=== PATIENT | male | born 1950 | race Caucasian/White ===

== ENCOUNTER → 2021-08-30 12:34 | Outpatient (CLI) | payer MEDICARE, SELFPAY ==
[2021-08-30 13:02] LABS: Basophils # 0.1 K/mm3 (0-0.2); Basophils % 0.9 % (0.1-2.0); Eosinophils # 0.1 K/mm3 (0.0-0.4); Eosinophils % 0.7 % (0.1-12.0); Hematocrit 44.1 % (42.0-52.0); Hemoglobin 14.2 g/dL (14.1-18.0); Lymphocytes # 1.2 K/mm3 (0.7-4.5); Lymphocytes % 8.5 % (10-50); Mean Corpuscular HGB Conc 32.2 g/dL (31.8-35.4); Mean Corpuscular Hemoglobin 30.6 pg (27.0-31.2); Mean Platelet Volume 8.9 fl (7.4-10.4); Monocytes # 0.8 K/mm3 (0.1-1.0); Monocytes % 5.7 % (1.7-9.3); Neutrophils # 11.5 K/mm3 (1.8-7.8); Neutrophils % 84.1 % (37.0-80.0); Platelet Count 333 K/mm3 (142-424); Red Blood Count 4.64 M/mm3 (4.60-6.20); Red Cell Distribution Width 14.4 % (11.5-17.5); White Blood Count 13.7 K/mm3 (4.8-10.8)
[2021-08-30 13:05] LABS: Chloride 101 mmol/L (98-107); Potassium 3.7 mmoL/L (3.5-5.1); Sodium 135 mmol/L (136-145)
[2021-08-30 13:07] LABS: Amylase 71 U/L (30-110); Blood Urea Nitrogen 29 mg/dl (9-20); Estimated Glomerular Filt Rate 40 ml/min (>60); GFR (African American) 48 ML/MIN (>60)
[2021-08-30 13:08] LABS: Alanine Aminotransferase 214 U/L (12-78); Albumin Level 3.6 g/dl (3.5-5.0); Albumin/Globulin Ratio 1.1 (1.1-1.8); Alkaline Phosphatase 1313 U/L (38-126); Anion Gap 11.7 mEq/L (5-15); Aspartate Amino Transferase 181 U/L (17-59); Bilirubin,Total 4.7 mg/dl (0.2-1.3); Calcium 8.4 mg/dl (8.4-10.2); Carbon Dioxide 26 mmol/L (22.0-30.0); Globulin 3.4 g/dL (1.3-3.2); Glucose 158 mg/dl (74-100); Lipase 67 U/L (23-300)
== END ==
PROVIDERS: Visit Provider Surgery
DX: R93.3 Abnormal findings on diagnostic imaging of other parts of digestive tract; R17 Unspecified jaundice
CPT/HCPCS: 36415; 80053; 82150; 82378; 83690; 85025; 86316

== ENCOUNTER → 2021-09-02 10:31 | Outpatient (CLI) | payer MEDICARE, SELFPAY ==
--- NOTE | 2021-09-02 10:34 | MR_ITS ---
FINAL REPORT CLINICAL HISTORY: ABN LIVER FUNCTION RESULTS, JAUNDICE FINDINGS: Multiplanar MR imaging of the abdomen was performed without contrast. There is a 5.4 x 4.1 cm mass in the inferior aspect of the left hepatic lobe which demonstrates contrast enhancement and moderate, peripheral biliary ductal dilatation, left greater than right. The gallbladder has an unremarkable appearance. No other mass or adenopathy is identified. IMPRESSION: Left hepatic mass with differential diagnosis including cholangiocarcinoma, hepatocellular carcinoma or possible solitary metastasis. No adenopathy. Reviewed, Interpreted and Dictated by Nigel Zayas III, MD Transcribed by Kayla Barrientos Authenticated by Nigel Zayas III, MD on 09/02/2021 12:46:36 PM [facility]
== END ==
PROVIDERS: PCP Family Medicine; Visit Provider Internal Medicine Gastroenterology
DX: R93.3 Abnormal findings on diagnostic imaging of other parts of digestive tract (principal); R94.5 Abnormal results of liver function studies; R17 Unspecified jaundice
CPT/HCPCS: 74181; 76376